=== PATIENT | male | born 1995 | race Caucasian/White ===

== ENCOUNTER 2018-08-20 05:01 | Inpatient (IN) | payer OTHER ==
[2018-08-20] MEDS ORDERED: NACL 0.9% 3 ML SYG IV (06:00)
[2018-08-20] MEDS ORDERED: DOCUSATE SODIUM 100 MG CAP PO (06:00)
[2018-08-20] MEDS ORDERED: ONDANSETRON 4 MG INJ IV (06:00)
[2018-08-20] MEDS ORDERED: BISACODYL (EC) 5 MG TAB PO (06:00)
[2018-08-20] MEDS ORDERED: CEFAZOLIN 1 GM INJ (07:00)
[2018-08-20] MEDS ORDERED: SEVOFLURANE 15 MIN (07:00)
[2018-08-20 07:40] LABS: ADD MAN DIFF? NO; HAAIG REFLEX REFLEX FILED
[2018-08-20 07:46] LABS: WHITE BLOOD COUNT 14.1 10^3/ul (4.8-10.8)
[2018-08-20 07:46] LABS: ABNORMAL IP MESSAGE 1; BASOPHILS % 0.1 % (0.0-2.0); EOSINOPHILS % 0.1 % (0.0-7.0); HEMATOCRIT 44.7 % (42.0-52.0); HEMOGLOBIN 15.5 g/dl (14.0-18.0); LYMPHOCYTES # 0.3 10^3/ul (0.8-2.9); LYMPHOCYTES % 2.3 % (15.0-51.0); MEAN CORPUSCULAR HEMOGLOBIN 29.7 pg (29.0-33.0); MEAN CORPUSCULAR HGB CONC 34.7 g/dl (32.0-37.0); MEAN CORPUSCULAR VOLUME 85.6 fl (82.0-101.0); MEAN PLATELET VOLUME 10.5 fl (7.4-10.4); MONOCYTE # 0.9 10^3/ul (0.3-0.9); MONOCYTES % 6.6 % (0.0-11.0); NEUTROPHIL # 12.8 10^3/ul (1.6-7.5); NEUTROPHILS % 90.5 % (39.0-77.0); PLATELET COUNT 208 10^3/UL (140-415); POSITIVE DIFF @See below; RED BLOOD COUNT 5.22 10^6/ul (4.70-6.10); RED CELL DISTRIBUTION WIDTH 12.8 % (11.5-14.5)
[2018-08-20 07:53] LABS: HEMOGLOBIN A1C 4.9 % (0-5.9)
[2018-08-20 08:04] LABS: ALANINE AMINOTRANSFERASE 306 IU/L (13-69); ALBUMIN 4.3 g/dl (3.3-4.9); ALBUMIN/GLOBULIN RATIO 1.34; ALKALINE PHOSPHATASE 111 IU/L (42-121); ANION GAP 11 (5-13); ASPARTATE AMINO TRANSFERASE 182 IU/L (15-46); BILIRUBIN,TOTAL 8.9 mg/dl (0.2-1.3); BLOOD UREA NITROGEN 11 mg/dl (7-20); CALCIUM 9.4 mg/dl (8.4-10.2); CARBON DIOXIDE 25 mmol/L (21-31); CHLORIDE 100 mmol/L (97-110); CHOL/HDL RATIO 2.7 RATIO; CHOLESTEROL 158 mg/dl (100-200); Estimated GFR > 60 mL/min (>60); GLUCOSE 122 mg/dl (70-220); HDL CHOLESTEROL 57 mg/dl (30-63); LDL CHOLESTEROL,CALCULATED 90 mg/dl; MAGNESIUM 1.7 mg/dl (1.7-2.5); POTASSIUM 3.8 mmol/L (3.5-5.1); SODIUM 136 mmol/L (135-144); TOTAL PROTEIN 7.5 g/dl (6.1-8.1); TRIGLYCERIDES 56 mg/dl (0-149)
[2018-08-20 08:35] LABS: HEPATITIS B SURFACE ANTIGEN NEGATIVE (NEGATIVE); THYROID STIMULATING HORMONE 0.353 MIU/L (0.465-4.680)
[2018-08-20 08:52] LABS: HEPATITIS B CORE ANTIBODY REACTIVE (NEGATIVE); HEPATITIS C VIRAL ANTIBODY NEGATIVE (NEGATIVE)
[2018-08-20 08:53] LABS: HEPATITIS B SURFACE ANTIBODY NEGATIVE (NEGATIVE)
[2018-08-20] MEDS: morphine 2 MG INJ IV ×3 (09:11→17:31)
[2018-08-20] MEDS: SOD CHLORIDE 0.9% 1,000 ML IV ×2 (09:11→23:29)
[2018-08-20 12:01] LABS: INR 1.01; PROTIME 13.4 Sec (11.9-14.9)
[2018-08-20] MEDS ORDERED: IOHEXOL 300MG/ML 30 ML BTL (17:37)
[2018-08-20] MEDS ORDERED: PROPOFOL 20 ML (21:03)
[2018-08-20] MEDS ORDERED: SUCCINYLCHOLINE CHLORIDE 100 MG/5 ML SYG IV (21:03)
[2018-08-20] MEDS ORDERED: FENTAnyl 50 MCG/ML VIAL (21:04)
[2018-08-20] MEDS ORDERED: LIDOCAINE 1% (MDV) 20 ML INJ (21:04)
[2018-08-20] MEDS ORDERED: MIDAZOLAM 1 MG/ML 2 ML INJ (21:04)
[2018-08-20] MEDS ORDERED: PHENYLephrine (100 MCG/ML) 5ML SYG (21:27)
[2018-08-20] MEDS ORDERED: DEXAMETHASONE 4 MG/ML 1 ML INJ (21:32)
[2018-08-20] MEDS ORDERED: ONDANSETRON 4 MG INJ (21:32)
[2018-08-20] MEDS: ACETAMINOPHEN 325 MG TAB PO (23:55)
[2018-08-21] MEDS: SOD CHLORIDE 0.9% 1,000 ML IV ×2 (08:25→21:45)
[2018-08-21] MEDS ORDERED: HYDROmorphONE 0.5 MG/0.5 ML SYG IV (09:26)
[2018-08-21] MEDS: ACETAMINOPHEN 325 MG TAB PO (10:27)
[2018-08-21 10:33] LABS: ADD MAN DIFF? NO
[2018-08-21 10:36] LABS: ABNORMAL IP MESSAGE 1; HEMATOCRIT 43.1 % (42.0-52.0); HEMOGLOBIN 14.6 g/dl (14.0-18.0); LYMPHOCYTES # 0.3 10^3/ul (0.8-2.9); MEAN CORPUSCULAR HEMOGLOBIN 29.4 pg (29.0-33.0); MEAN CORPUSCULAR HGB CONC 33.9 g/dl (32.0-37.0); MEAN CORPUSCULAR VOLUME 86.7 fl (82.0-101.0); MONOCYTE # 0.4 10^3/ul (0.3-0.9); MONOCYTES % 4.9 % (0.0-11.0); NEUTROPHIL # 7.3 10^3/ul (1.6-7.5); NEUTROPHILS % 90.9 % (39.0-77.0); PLATELET COUNT 189 10^3/UL (140-415); POSITIVE DIFF @See below; RED BLOOD COUNT 4.97 10^6/ul (4.70-6.10); RED CELL DISTRIBUTION WIDTH 12.7 % (11.5-14.5)
[2018-08-21 11:05] LABS: ALANINE AMINOTRANSFERASE 184 IU/L (13-69); ALBUMIN/GLOBULIN RATIO 1.21; ALKALINE PHOSPHATASE 111 IU/L (42-121); ANION GAP 12 (5-13); ASPARTATE AMINO TRANSFERASE 74 IU/L (15-46); BILIRUBIN,INDIRECT 3.6 mg/dl (0-1.1); BILIRUBIN,TOTAL 7.5 mg/dl (0.2-1.3); BLOOD UREA NITROGEN 14 mg/dl (7-20); CALCIUM 9.4 mg/dl (8.4-10.2); CARBON DIOXIDE 25 mmol/L (21-31); CHLORIDE 101 mmol/L (97-110); CREATININE 0.68 mg/dl (0.61-1.24); Estimated GFR > 60 mL/min (>60); GLUCOSE 113 mg/dl (70-220); MAGNESIUM 2.3 mg/dl (1.7-2.5); POTASSIUM 4.1 mmol/L (3.5-5.1); SODIUM 138 mmol/L (135-144); TOTAL PROTEIN 7.3 g/dl (6.1-8.1)
[2018-08-21] MEDS: PIPER-TAZO 3.375 GM IV (PMX) 100 ML IVPB ×2 (11:54→18:10)
[2018-08-22] MEDS: PIPER-TAZO 3.375 GM IV (PMX) 100 ML IVPB ×3 (00:45→11:13)
[2018-08-22 06:29] LABS: ADD MAN DIFF? NO
[2018-08-22 06:42] LABS: WHITE BLOOD COUNT 6.8 10^3/ul (4.8-10.8)
[2018-08-22 06:42] LABS: BASOPHILS % 0.1 % (0.0-2.0); EOSINOPHILS # 0.1 10^3/ul (0.0-0.5); HEMATOCRIT 40.9 % (42.0-52.0); HEMOGLOBIN 13.8 g/dl (14.0-18.0); LYMPHOCYTES # 0.9 10^3/ul (0.8-2.9); LYMPHOCYTES % 13.8 % (15.0-51.0); MEAN CORPUSCULAR HEMOGLOBIN 29.6 pg (29.0-33.0); MEAN CORPUSCULAR HGB CONC 33.7 g/dl (32.0-37.0); MEAN CORPUSCULAR VOLUME 87.8 fl (82.0-101.0); MEAN PLATELET VOLUME 11.5 fl (7.4-10.4); MONOCYTE # 0.7 10^3/ul (0.3-0.9); MONOCYTES % 9.5 % (0.0-11.0); NEUTROPHIL # 5.1 10^3/ul (1.6-7.5); NEUTROPHILS % 75.3 % (39.0-77.0); PLATELET COUNT 182 10^3/UL (140-415); RED BLOOD COUNT 4.66 10^6/ul (4.70-6.10); RED CELL DISTRIBUTION WIDTH 13.2 % (11.5-14.5)
[2018-08-22] MEDS: SOD CHLORIDE 0.9% 1,000 ML IV (06:44)
[2018-08-22 07:08] LABS: ALANINE AMINOTRANSFERASE 137 IU/L (13-69); ALBUMIN 3.3 g/dl (3.3-4.9); ALBUMIN/GLOBULIN RATIO 0.97; ALKALINE PHOSPHATASE 113 IU/L (42-121); ANION GAP 10 (5-13); ASPARTATE AMINO TRANSFERASE 53 IU/L (15-46); BILIRUBIN,INDIRECT 1.2 mg/dl (0-1.1); BILIRUBIN,TOTAL 1.2 mg/dl (0.2-1.3); BLOOD UREA NITROGEN 17 mg/dl (7-20); CALCIUM 8.6 mg/dl (8.4-10.2); CARBON DIOXIDE 23 mmol/L (21-31); CHLORIDE 108 mmol/L (97-110); Estimated GFR > 60 mL/min (>60); GLUCOSE 101 mg/dl (70-220); MAGNESIUM 2.4 mg/dl (1.7-2.5); POTASSIUM 3.8 mmol/L (3.5-5.1); SODIUM 141 mmol/L (135-144); TOTAL PROTEIN 6.7 g/dl (6.1-8.1)
== END 2018-08-22 12:55 | disposition home or self-care (01) | DRG 445 ==
LOC: E/R 05:01 → MS1 05:40
PROC: 0FPB8DZ Removal of Intraluminal Device from Hepatobiliary Duct, Via Natural or Artificial Opening Endoscopic (ICD-10-PCS; principal; 2018-08-20 19:30)
PROC: 0FC98ZZ Extirpation of Matter from Common Bile Duct, Via Natural or Artificial Opening Endoscopic (ICD-10-PCS; 2018-08-20 19:30)
DX: K80.33 Calculus of bile duct with acute cholangitis with obstruction (principal); B19.10 Unspecified viral hepatitis B without hepatic coma; E78.5 Hyperlipidemia, unspecified
CPT/HCPCS: 74330; 80053; 80061; 83036; 83735; 84443; 85025; 85610; 86704; 86706; 86709; 86803; 87040; 87340

== ENCOUNTER 2019-01-17 00:22 | Emergency (ER) | payer OTHER | END 2019-01-17 01:28 | disposition home or self-care (01) | LOC: FTE 00:22 | DX: L30.9 Dermatitis, unspecified (principal); N48.1 Balanitis; Z87.891 Personal history of nicotine dependence | CPT/HCPCS: 99283 ==